=== PATIENT | female | born 1960 | race African-American/Black ===

== ENCOUNTER → 2016-12-13 | Outpatient (CLI) | payer OTHER ==
--- NOTE | 2016-12-13 10:14 | RAD ---
DATE: 12/13/2016 EXAM: DIGITAL SCREEN BILAT W/CAD HISTORY: Screening study. COMPARISON: None. This study was interpreted with the benefit of Computerized Aided Detection (CAD). FINDINGS: Digital MLO and CC mammograms of both breasts were obtained. No previous mammograms are available for comparison. The breast parenchyma is composed of scattered fibroglandular densities which can obscure a lesion on mammography (breast density code B). Benign-appearing calcifications are seen scattered throughout both breasts. A 1.4 cm slightly rounded mass is seen within the upper outer quadrant of the right breast. Further evaluation with ultrasound is recommended. No dominant mass is seen within the left breast. No malignant appearing calcification or area of architectural distortion is noted. IMPRESSION: 1.4 cm mass is seen within the upper-outer quadrant of the right breast. Further evaluation with right breast ultrasound is recommended. BI-RADS CATEGORY: 0 INCOMPLETE: NEEDS ADDITIONAL IMAGING EVALUATION AND/OR PRIOR MAMMOGRAMS FOR COMPARISON. RECOMMENDED FOLLOW-UP: ADD ADDITIONAL IMAGING Mammography is a sensitive method for finding small breast cancers, but it does not detect them all and is not a substitute for careful clinical examination. A negative mammogram does not negate a clinically suspicious finding and should not result in delay in biopsying a clinically suspicious abnormality. "Our facility is accredited by the [employer] Mammography [employer]."
== END | disposition home or self-care (01) ==
LOC: MAMMO 08:08
PROVIDERS: ATTEND Family Medicine
DX: Z12.31 Encounter for screening mammogram for malignant neoplasm of breast (principal); N63 Unspecified lump in breast
CPT/HCPCS: G0202; 77067

== ENCOUNTER → 2016-12-27 | Outpatient (CLI) | payer MEDICAID, OTHER ==
--- NOTE | 2016-12-27 11:42 | RAD ---
Right breast ultrasound Indication: 56-year-old female with abnormal right breast findings on screening mammogram from 12/13/2016. Technique: Targeted ultrasound of the right breast. Comparison: Screening mammogram from 12/13/2016 Findings: There is a 1.0 x 1.0 x 0.9 cm well-circumscribed hypoechoic lesion at 9:00 position, 5 cm from the nipple with posterior acoustic enhancement and no internal vascularity or mural nodularity. Impression: Simple cyst in the right breast. This corresponds to previously seen abnormality on mammogram from 12/13/2016. BI-RADS 2: Benign finding:
== END | disposition home or self-care (01) ==
LOC: US 10:12
PROVIDERS: ATTEND Family Medicine
DX: R92.8 Other abnormal and inconclusive findings on diagnostic imaging of breast (principal); N60.01 Solitary cyst of right breast
CPT/HCPCS: 76641

== ENCOUNTER 2020-05-05 12:31 | Emergency (ER) | payer OTHER ==
[~2020-05-05] VITALS: Ht 170.2 cm; Wt 86.8 kg
[2020-05-05 12:43] VITALS: BP 167/79
--- NOTE | 2020-05-05 13:27 | RAD ---
Examination: XR HAND_LEFT 3 VIEWS, XR LT WRIST 3VIEWS, XR ELBOW_LEFT, XR FOREARM_LEFT 2 VIEWS History: Reason: wrist pain s/p foosh / Comparison/Correlation: None Findings: 3 images of the left wrist, 3 images of the left hand, 2 images of the left forearm, and T2 images of the left elbow were obtained. Comminuted distal radial metaphyseal fracture are present. Intra-articular extension noted. Displacem ent of fracture fragments noted. Ulnar styloid fracture is displaced. Marked soft tissue swelling at the dorsal aspect of the wrist noted. Carpal bones are grossly unremarkable. Degenerative narrowing o f interphalangeal joints is evident. Mid and proximal aspects of the radius and ulna are unremarkable. Evaluation of the elbow may be limi jasmin due to hyperflexion for purposes of this exam. Joint spaces are unremarkable at the elbow. No elb ow joint effusion suspected. Impression: Comminuted distal radial metaphyseal fracture with displacement of fragments and intra-articular exte nsion. Displaced ulnar styloid fracture. Carpal bones are intact. If occult fracture involving carpal bones is a persistent concern, consider further imaging. Electronically signed by: Joey Hall MD (05/05/2020 1:25 PM) [id number]
[2020-05-05] MEDS ORDERED: HYDR-3164 PO (13:39)
--- NOTE | 2020-05-05 13:43 | PHYS DOC ---
Past Medical History Past Medical History: Anxiety, Asthma, GERD Additional Past Medical Histor: neuropathy Past Surgical History: No Surgical History Smoking Status: Never Smoker Alcohol Use: None General Adult EDM: Chief Complaint: MECHANICAL FALL HPI: HPI: 59 yo has medical history of fibromyalgia, presents the ED with complaints of left wrist pain (R hand dominant) after patient accidentally slipped and fell in her bathroom on tile floor while wearing socks. States she fell backwards on a flexed left hand, late last night. Did not come to the ED immediately because she did not have a ride. Does report mildly hitting her head. No loss of consciousness. Not on any anticoagulants. Denies any associated headache, neck stiffness, midline neck pain, chest pain, dizziness, shortness of breath or hemoptysis, leg swelling, back pain or neurologic deficits Review of Systems: Review of Systems: Constitutional: Denies fever or chills. [] Eyes: Denies change in visual acuity. [] HENT: Denies nasal congestion or sore throat. [] Respiratory: Denies cough or shortness of breath. [] Cardiovascular: Denies chest pain or edema. [] GI: Denies abdominal pain, nausea, vomiting, bloody stools or diarrhea. [] : Denies dysuria or hematuria Musculoskeletal: Denies back pain or hot joint Integument: Denies crepitus or cyanosis Neurologic: Denies headache, neck pain, focal weakness or sensory changes. [] Endocrine: Denies polyuria or polydipsia. [] Lymphatic: Denies swollen glands. [] Psychiatric: Denies depression or anxiety. [] Heart Score: Risk Factors: Risk Factors: DM, Current or recent (<one month) smoker, HTN, HLP, family history of CAD, obesity. Risk Scores: Score 0 - 3: 2.5% MACE over next 6 weeks - Discharge Home Score 4 - 6: 20.3% MACE over next 6 weeks - Admit for Clinical Observation Score 7 - 10: 72.7% MACE over next 6 weeks - Early Invasive Strategies Allergies: Allergies: Allergies Coded Allergies Type Severity Reaction Last Updated Verified No Known Drug Allergies 05/05/20 No Physical Exam: PE: Constitutional: Well developed, well nourished, no acute distress, non-toxic appearance, obese HENT: Normocephalic, atraumatic, no midline neck pain Eyes: PERRLA, EOMI, conjunctiva normal, no discharge. Neck: Normal range of motion, supple, Cardiovascular: S1/2 present, regular rhythm Lungs & Thorax: Speaking in full sentences, bilateral equal chest rise, no tachypnea or increased work of breathing Abdomen: soft, no tenderness, Skin: Warm, dry, no erythema, no rash. [] Back: No midline tenderness, no CVA tenderness. [] Extremities: Ecchymosis over dorsum of hand swelling, swelling over left distal wrist, equal radial pulses, no elbow or shoulder ttp, no pain past MCP joints, no snuffbox ttp, Neurologic: Alert and oriented X 3, normal motor function, normal sensory function, no focal deficits noted. [] Psychologic: Affect normal, judgement normal, mood alfa-smiling/makes jokes Current Patient Data: Vital Signs: Vital Signs Date Time Temp Pulse Resp B/P (MAP) Pulse Ox O2 Delivery O2 Flow Rate FiO2 05/05/20 12:43 98.2 82 18 167/79 (108) 97 Room Air 98.2 EKG: EKG: [] Radiology/Procedures: Radiology/Procedures: IMAGING REPORT Signed PATIENT: SANA ROB ACCOUNT: [id number] : 1960 LOCATION: ER AGE: 59 SEX: F EXAM STATUS: REG ER ORD. PHYSICIAN: NOAH PECK DO REASON: wrist pain s/p foosh PROCEDURE: ELBOW LEFT 2V Examination: XR HAND_LEFT 3 VIEWS, XR LT WRIST 3VIEWS, XR ELBOW_LEFT, XR FOREARM_LEFT 2 VIEWS History: Reason: wrist pain s/p foosh / Comparison/Correlation: None Findings: 3 images of the left wrist, 3 images of the left hand, 2 images of the left forearm, and T2 images of the left elbow were obtained. Comminuted distal radial metaphyseal fracture are present. Intra-articular extension noted. Displacement of fracture fragments noted. Ulnar styloid fracture is displaced. Marked soft tissue swelling at the dorsal aspect of the wrist noted. Carpal bones are grossly unremarkable. Degenerative narrowing of interphalangeal joints is evident. Mid and proximal aspects of the radius and ulna are unremarkable. Evaluation of the elbow may be limited due to hyperflexion for purposes of this exam. Joint spaces are unremarkable at the elbow. No elbow joint effusion suspected. Impression: Comminuted distal radial metaphyseal fracture with displacement of fragments and intra-articular extension. Displaced ulnar styloid fracture. Carpal bones are intact. If occult fracture involving carpal bones is a persistent concern, consider further imaging. Electronically signed by: Joey López MD (05/05/2020 1:25 PM) [id number] DICTATED and SIGNED BY: JOEY LÓPEZ MD DATE: 05/05/20 [id number] Impression: Patient informed of findings. Sugar tong left upper extremity splint applied by rn. The splint is checked by myself, with appropriate stabilization of the injury. Distal capillary refill normal and distal neurologic function intact Course & Med Decision Making: Course & Med Decision Making Pertinent Labs and Imaging studies reviewed. (See chart for details) Seen for comminuted closed distal radius fracture and ulnar styloid fracture status post FOOSH injury with no head injury. Patient neurologically intact with no pain out of proportion. Splint instructions given. Will discharge home with strict ED return precautions were given for severe worsening pain, sensory or motor deficits, paralysis or paresthesias or skin color changes.. Encouraged urgent outpatient follow-up with PMD and ortho evaluation in next week. Life- threatening processes were considered but are low suspicion at this time, given history, physical exam and ED workup. Pt was educated on all prescription medi cations and adverse effects. All patient's questions were answered and pt was stable at time of discharge. Life/limb-threatening differential includes but is not limited to, intracranial hemorrhage, diffuse axonal injury, spinal cord syndrome, unstable cervical fracture or SCIWORA, fractures or joint dislocations, neurovascular injuries, organ injury or laceration, pneumothorax, pneumoperitoneum, pericardial tamponade, unstable pelvic fracture, compartment syndrome, flail chest or respiratory distress, burn injury or asphyxiation I spoken with the patient and her caregivers. I explained the patient's condition, diagnoses and treatment plan based on the information available to me at this time. I have answered the patient and her caregiver's questions and addressed any concerns. The patient and her caregivers have a good understanding of patient's diagnosis, condition and treatment plan as can be expected at this point. Vital signs have been stable. Patient's condition is stable and appropriate for discharge from the emergency department. Patient will pursue further outpatient evaluation with primary care physician or other designated or consulting physician as outlined in the discharge instructions. The patient and/or caregivers are agreeable to this plan of care and follow-up instructions have been explained in detail. The patient and/or caregivers have received these instructions in written form and have expressed an understanding of the discharge instructions. The patient and/or caregivers are aware that any significant change of condition or worsening of symptoms should prompt immediate return to this or the closest emergency department [facility] Disclaimer: Tom Disclaimer: This electronic medical record was generated, in whole or in part, using a voice recognition dictation system. Departure Departure Impression: Primary Impression: Distal radial fracture Additional Impressions: Fracture of ulnar styloid Accidental fall Disposition: 01 DC HOME SELF CARE/HOMELESS Condition: STABLE Referrals: NON,STAFF (PCP) FOLLOW UP WITH FAMILY MEDICINE: Family Medicine Address: [address], [facility] [address] [place] [address] Patient Instructions: Radius Fracture with Rehab-SportsMed, Splint Care, [id number], Ulnar Fracture Additional Instructions: FOLLOW UP WITH ORTHOPEDICS: within 1 week for evaluation [facility] Address: [address] [facility], [facility] [address] [place] [address] EMERGENCY DEPARTMENT GENERAL DISCHARGE INSTRUCTIONS Thank you for coming to [facility] Emergency Department (ED) today and trusting us with you care. We trust that you had a positive experience in our Emergency Department. If you wish to speak to the department management, you may call the Director at [phone]. YOUR FOLLOW UP INSTRUCTIONS ARE FOLLOWS: 1. Do you have a private Doctor? If you do not have a private doctor, please ask for a resource list of physicians or clinics that may be able to assist you with follow up care. 2. The Emergency Physicain has interpreted your x-rays. The X-Ray specialist will also review them. If there is a change in the findings, you will be notified in 48 hours when at all possible. 3. A lab test or culture has been done, your results will be reviewed and you will be notified if you need a change in treatment. ADDITIONAL INSTRUCTIONS AND INFORMATION: 1. Your care today has been supervised by a physician who is specially trained in emergency care. Many problems require more than one evaluation for a complete diagnosis and treatment. We recommend that you schedule your follow up appointment as recommended to ensure complete treatment of you illness or injury. If you are unable to obtain follow up care and continue to have a problem, or if your condition worsens, we recommend that you return to the ED. 2. We are not able to safely determine your condition over the phone nor are we able to give sound medical advice over the phone. For these safety reasons, if you call for medical advice we will ask you to come to the ED for further evaluation. 3. If you have any questions regarding these discharge instructions please call the ED at [phone]. SAFETY INFORMATION: In the interest of safety, wellness, and injury prevention; we encourage you to wear your sealbelt, if you smoke; quite smoking, and we encourage family to use a protective helmet for bicycling and other sporting events that present an increased risk for head injury. IF YOUR SYMPTOMS WORSEN OR NEW SYMPTOMS DEVELOP, OR YOU HAVE CONCERNS ABOUT YOUR CONDITION; OR IF YOUR CONDITION WORSENS WHILE YOU ARE WAITING FOR YOUR FOLLOW UP APPOINTMENT; EITHER CONTACT YOUR PRIMARY CARE DOCTOR, THE PHYSICIAN WHOSE NAME AND NUMBER YOU WERE GIVEN, OR RETURN TO THE ED IMMEDIATELY. Scripts Hydrocodone/Apap 5-325 (NORCO 5-325 TABLET) 1 Each Tablet 1 TAB PO PRN Q6HRS PRN for PAIN for 3 Days, #12 TAB 0 Refills Prov: NOAH PECK DO 05/05/20 NOAH PECK DO May 05, 2020 13:43
[2020-05-05] MEDS ORDERED: HYDROcodone/APAP 5/325MG 1 TAB TABLET PO ONE (13:45)
== END 2020-05-05 14:01 | disposition home or self-care (01) ==
LOC: ER 12:31
DX: S52.502A Unspecified fracture of the lower end of left radius, initial encounter for closed fracture (principal); S52.612A Displaced fracture of left ulna styloid process, initial encounter for closed fracture; K21.9 Gastro-esophageal reflux disease without esophagitis; J45.909 Unspecified asthma, uncomplicated; W01.0XXA Fall on same level from slipping, tripping and stumbling without subsequent striking against object, initial encounter; Y93.89 Activity, other specified; Y92.091 Bathroom in other non-institutional residence as the place of occurrence of the external cause; Y99.8 Other external cause status
CPT/HCPCS: 29125; 73070; 73090; 73110; 73130; 99284

== ENCOUNTER 2020-05-12 12:07 | Day surgery (SDC) | payer OTHER ==
[~2020-05-12] VITALS: Ht 170.2 cm; Wt 90.3 kg
[~2020-05-12 12:07] MED LIST: ALBU2.5V8 IH; FLUT1BLS3 IH; GABA600T7 PO; HYDR-3164 PO; HYDROmorphone 2 MG/ML VIAL IV PRN; IV RINGERS,LACTATED 1000ML 1,000 ML IV SCH; MONT10TA49 PO; MORPHINE SULFATE 2 MG/ML VIAL. IV PRN; NAPR-514 PO; OMEP40CA45 PO; ONDANSETRON PF 4 MG/2 ML VIAL. IV PRN; POTA20TA4 PO; PROCHLORPERAZINE 10 MG/2 ML VIAL. IV PRN; fentaNYL PF VIAL 100 MCG/2 ML VIAL IV PRN
[2020-05-12] MEDS ORDERED: FLUT1BLS3 IH (13:13)
[2020-05-12] MEDS ORDERED: BACL10TA PO (13:14)
[2020-05-12] MEDS ORDERED: IPRA0.2S5 IH (13:15)
[2020-05-12] MEDS ORDERED: fentaNYL PF VIAL 100 MCG/2 ML VIAL ONE ×2 (13:44→15:15)
[2020-05-12] MEDS ORDERED: MIDAZOLAM HCL/PF 2 MG/2 ML VIAL. ONE (13:44)
[2020-05-12] MEDS ORDERED: BUPIVACAINE MPF 0.5% 30 ML VIAL. ONE (13:49)
[2020-05-12] MEDS ORDERED: ceFAZolin 2GM PREMIX 2 GM/50 ML BAG IV ONE (14:00)
[2020-05-12] MEDS ORDERED: HYDR-3165 PO (14:56)
--- NOTE | 2020-05-12 14:59 | DISCH ---
DISCHARGE INSTRUCTIONS Condition on Discharge Condition on Discharge: Stable Activity After Discharge Activity Instructions for Disc: Other, see below (Fine motor use with gentle grasp for silverware eating writing typing etc.) Lifting Instructions after Dis: No heavy lifting Diet after Discharge Diet after Discharge: Regular Wound Incision Care Wound/Incision Care: Ice to area for comfort, Do not change dressing Contacting the after DC Call your doctor for: Concerns you may have Follow-Up Follow up with: Dr. Cruz 7 to 10 days VIKASH CRUZ MD May 12, 2020 14:59
[2020-05-12] MEDS ORDERED: PROPOFOL 10 MG/ML (20ML) VIAL. IV ONE (15:02)
[2020-05-12] MEDS ORDERED: LIDOCAINE 2% PF 5 ML VIAL. ONE (15:02)
[2020-05-12] MEDS ORDERED: SEVOFLURANE 61 TO 120 MINUTES. IH ONE (15:02)
[2020-05-12] MEDS ORDERED: DEXAMETHASONE SOD PHOS 4 MG/ML VIAL ONE (15:02)
[2020-05-12] MEDS ORDERED: ONDANSETRON PF 4 MG/2 ML VIAL. ONE (15:02)
[2020-05-12] MEDS: fentaNYL PF VIAL 100 MCG/2 ML VIAL IV PRN ×2 (15:22→15:29)
[2020-05-12] MEDS ORDERED: PROCHLORPERAZINE 10 MG/2 ML VIAL. ONE (15:24)
[2020-05-12] MEDS ORDERED: HYDROcodone/APAP 7.5/325MG 1 TAB TABLET PO ONE (15:45)
--- NOTE | 2020-05-12 15:46 | PDOC4 ---
Operative Note Operative Note Date of surgery: 05/12/2020 Preoperative diagnosis: Displaced left intra-articular distal radius fracture Postoperative diagnosis: Same with 2 part displacement Operative procedure: Operative reduction internal fixation 2 part intra- articular left distal radius fracture Surgeon: Nancy Lard Maker: Naresh coleman Anesthesia: General Estimated blood loss: 10 cc Complications: None Operative indications: Please see my orthopedic clinic note for detailed operative indications Operative text: Patient was identified procedure verified patient placed in the supine position on the operating table. After adequate amounts of general anesthesia were administered the left upper extremity was prepped and draped in standard sterile fashion with an upper arm tourniquet. After timeout was performed patient procedure identified and verified the left upper extremity was exsanguinated by Esmarch bandage tourniquet inflated to 250 mmHg a volar Srinivas approach was carried out to the distal radius and subperiosteal dissection was carried out. A narrow short DVR cross lock Kourtney titanium volar plate was selected and with reduction carried out under fluoroscopic guidance a nonlocking screw was placed in the sliding hole and fine placement of the plate was then accomplished under fluoroscopic guidance. Distal row locking screws were placed under fluoroscopic guidance to check positioning and length and excellent fixation was noted throughout. Anatomic reduction carried out of the intra- articular portion of the fracture and volar tilt was restored. Proximal locking screws were likewise placed in addition to additional shaft fixation with nonlocking screws. Reduction and hardware placement were checked under multiple fluoroscopic views there irrigation carried out normal saline solution subcutaneous closure accomplished with buried Vicryl suture subcuticular 3-0 Monocryl Steri-Strips and Mastisol were then placed followed by a well-padded volar splint. Fingers were noted to be warm pink following deflation of the tourniquet patient was returned to recovery room stable condition having tolerated procedure well. Naresh coleman was present for the procedure and assisted and patient positioning prepping draping retraction closure and dressings VIKASH REAVES MD May 12, 2020 15:46
[2020-05-12 16:55] VITALS: BP 152/64
== END 2020-05-12 17:33 | disposition home or self-care (01) ==
LOC: SURG 12:07
PROVIDERS: ATTEND Orthopaedic Surgery
DX: S52.572A Other intraarticular fracture of lower end of left radius, initial encounter for closed fracture (principal); S52.612A Displaced fracture of left ulna styloid process, initial encounter for closed fracture; K21.9 Gastro-esophageal reflux disease without esophagitis; J45.909 Unspecified asthma, uncomplicated; F41.9 Anxiety disorder, unspecified; Z79.899 Other long term (current) drug therapy; Z98.890 Other specified postprocedural states; Z20.828 Contact with and (suspected) exposure to other viral communicable diseases; X58.XXXA Exposure to other specified factors, initial encounter; Y93.89 Activity, other specified; Y92.89 Other specified places as the place of occurrence of the external cause; Y99.8 Other external cause status
CPT/HCPCS: 25608; 87426; C1713; C9803; J0690; J0780; J1100; J2250; J2405; J2704; J3010; J3490; U0003; 76000

== ENCOUNTER → 2020-09-04 | Outpatient (CLI) | payer OTHER ==
[~2020-09-04] MED LIST changes: +BACL10TA PO; +HYDR-3165 PO; -HYDROmorphone 2 MG/ML VIAL IV PRN; +IPRA0.2S5 IH; -IV RINGERS,LACTATED 1000ML 1,000 ML IV SCH; -MORPHINE SULFATE 2 MG/ML VIAL. IV PRN; -OMEP40CA45 PO; +OMEP40CA7 PO; -ONDANSETRON PF 4 MG/2 ML VIAL. IV PRN; +OXYC1TAB19 PO; -PROCHLORPERAZINE 10 MG/2 ML VIAL. IV PRN; -fentaNYL PF VIAL 100 MCG/2 ML VIAL IV PRN
--- NOTE | 2020-09-04 14:10 | KCIC ---
Examination: MRI of the left shoulder without contrast HISTORY: History of left shoulder pain, decreased range of motion COMPARISON: None available TECHNIQUE: Multiplanar, multisequence MR imaging of the left shoulder. FINDINGS: The long head of the biceps tendon within the bicipital groove. The attachment of the long head the b iceps tendon to the superior labral anchor grossly appears intact. Small amount of fluid identified i n the biceps tendon sheath. The attachment of the subscapularis tendon grossly appears intact. There is full-thickness tear of the supraspinatus tendon with tendon retraction up to the level of the mid humerus head with extension of fluid in the subacromial /subdeltoid bursa. Moderate increased signal identified in the supraspinatus, infraspinatus tendon likely tendinosis. There is mild obscuration of fat in the rotator interval. The acromion is type II. The visualized labrum grossly appears unremark able. The muscle bulk grossly appears unremarkable. Moderate degenerative changes glenohumeral joint, acromioclavicular joint. IMPRESSION: 1. Full-thickness tear of the supraspinatus tendon with mild tendon retraction. 2. Moderate tendinosis of the cuff. 3.Moderate degenerative changes acromioclavicular joint, glenohumeral joint. Electronically signed by: Jovany Alex MD (09/04/2020 2:07 PM) [id number]
== END ==
LOC: KCIC MRI 12:20
PROVIDERS: ATTEND Physician Assistant
DX: M19.012 Primary osteoarthritis, left shoulder (principal); M75.122 Complete rotator cuff tear or rupture of left shoulder, not specified as traumatic
CPT/HCPCS: 73221

== ENCOUNTER → 2020-09-29 | Outpatient (CLI) | payer OTHER ==
[~2020-09-29] MED LIST changes: +OMEP40CA45 PO; -OMEP40CA7 PO
== END ==
LOC: LAB 08:42
PROVIDERS: ATTEND Orthopaedic Surgery
DX: Z01.812 Encounter for preprocedural laboratory examination (principal); Z20.822 Contact with and (suspected) exposure to COVID-19; M75.122 Complete rotator cuff tear or rupture of left shoulder, not specified as traumatic
CPT/HCPCS: U0003; U0005

== ENCOUNTER 2020-10-02 07:57 | Day surgery (SDC) | payer OTHER ==
[~2020-10-02 07:57] MED LIST changes: +EPINEPHrine VIAL 30 MG/30 ML VIAL ONE; +HYDROmorphone 2 MG/ML VIAL IVP PRN; +IV RINGERS,LACTATED 1000ML 1,000 ML IV SCH; +MORPHINE SULFATE 2 MG/ML VIAL. IVP PRN; -OMEP40CA45 PO; +OMEP40CA7 PO; -OXYC1TAB19 PO; +PROCHLORPERAZINE 10 MG/2 ML VIAL. IVP PRN; +fentaNYL PF VIAL 100 MCG/2 ML VIAL IVP PRN
[2020-10-02] MEDS ORDERED: fentaNYL PF VIAL 100 MCG/2 ML VIAL ONE (08:36)
[2020-10-02] MEDS ORDERED: MIDAZOLAM HCL/PF 2 MG/2 ML VIAL. ONE (08:37)
[2020-10-02] MEDS ORDERED: ROCURONIUM 50 MG/5 ML VIAL. ONE (08:39)
[2020-10-02] MEDS ORDERED: LIDOCAINE 2% PF 5 ML VIAL. ONE (08:39)
[2020-10-02] MEDS ORDERED: PROPOFOL 10 MG/ML (20ML) VIAL. IV ONE (08:39)
[2020-10-02] MEDS ORDERED: ROPIVacaine 0.5% PF 20 ML VIAL. ONE ×2 (08:42)
[2020-10-02] MEDS ORDERED: GLYCOPYRROLATE 1 MG/5 ML VIAL. ONE (10:25)
[2020-10-02] MEDS ORDERED: NEOSTIGMINE METHYLSULFATE 5 MG/5 ML SYRINGE. ONE (10:25)
[2020-10-02] MEDS ORDERED: ONDANSETRON PF 4 MG/2 ML VIAL. ONE (10:25)
[2020-10-02] MEDS ORDERED: DEXAMETHASONE SOD PHOS 4 MG/ML VIAL ONE (10:25)
[2020-10-02] MEDS ORDERED: OXYC1TAB19 PO (11:49)
[2020-10-02 11:58] VITALS: BP 133/72
[2020-10-02] MEDS ORDERED: oxyCODONE/APAP 7.5/325 1 TAB TABLET PO ONE ×2 (12:15)
[2020-10-02] MEDS ORDERED: PROCHLORPERAZINE 10 MG/2 ML VIAL. ONE (12:31)
--- NOTE | 2020-10-02 13:01 | DISCH ---
DISCHARGE INSTRUCTIONS Condition on Discharge Condition on Discharge: Stable Activity After Discharge Activity Instructions for Disc: Other, see below (Passive range of motion of operative shoulder only, do not lift the arm with elbow above the side, fine motor use permitted with the elbow at the side only) Lifting Instructions after Dis: No heavy lifting Weight Bearing Status after Di: Non weight bearing Diet after Discharge Diet after Discharge: Regular Wound Incision Care Wound/Incision Care: Ice to area for comfort, Change dressing (Remove dressing in 2 days may then shower no soaking until sutures removed) Community/Resources/Services Services at Discharge: PT EVALUATE & TREAT (Passive range of motion only, no active lifting of the elbow away from the side, may do pendulum exercises and hang the arm down to the side while walking, must wear immobilizer at night) Contacting the [facility] after DC Call your doctor for: Concerns you may have Follow-Up Follow up with: Dr. Cruz or Curtis 10 days postop VIKASH CRUZ MD October 02, 2020 13:00
--- NOTE | 2020-10-02 15:52 | PDOC4 ---
Operative Note Operative Note Date of surgery: 10/02/2020 Preoperative diagnosis: Left shoulder rotator cuff tear and suspected biceps labral compromise Postoperative diagnosis: Same with retracted full-thickness supraspinatus tear and biceps tendon fraying Operative procedure: Left shoulder arthroscopy arthroscopic rotator cuff repair and biceps tenodesis with labral debridement Surgeon: Nancy Cytotechnologist Supervisor:Den coleman Anesthesia: General plus scalene block Estimated blood loss: 10 cc Complications: None Operative indications: Please see my preoperative clinic note for detailed op erative indications and note that I covered the possibility of nonhealing nerve or blood vessel damage continued pain medical or other anesthetic complications among others and that specific postoperative restrictions would depend on the specific pathology found and fixed. She agrees to proceed with surgical evaluation and treatment Operative text: Patient was identified procedure verified patient placed in the supine position on the operating table. After adequate amounts of general anesthesia and a pre-existing scalene block were obtained she was placed in the decubitus position left side up all bony prominences were well-padded and the left shoulder was examined under anesthesia found to have full range of motion no instability. The left shoulder was then prepped and draped in standard sterile fashion and placed in the arthroscopic arm perez with a total of 10 pounds of traction. After timeout was performed patient procedure identified and verified a standard posterior portal was established an anterior portal established using spinal needle localization and the shoulder joint was systematically examined. Glenohumeral joint was well-maintained. She had biceps fraying of at least 35 to 40%. She also had a retracted full-thickness tear of the supraspinatus and anterior aspect of the infraspinatus tendon. Capsuloligamentous structures were in good condition as was the subscapularis. Biceps was tagged and tenotomized and the subacromial space was entered a lateral portal established and bursa cleared for adequate visualization. Rotator cuff tear was noted to be and a U-shaped and a [id number] max braid suture was placed for margin convergence and was tied with a sliding locking knot backed up by alternating post half hitches. The rotator cuff footprint was debrided back to stable bleeding bony tissue without decortication. A total of 2 juggernaut double loaded anchors were placed medially on the footprint and simple sutures were placed following the margin convergence and adequate mobilization. An additional max braid suture was placed in the biceps tendon to perform a biceps tenodesis coincident with the rotator cuff repair arthroscopically. Both were anchored with a 5.5 Anesco peek lateral row anchor which had excellent fixation. A watertight rotator cuff repair was demonstrated and biceps was well tensioned and contour maintained. Joint was drained of arthroscopic fluid portals closed with nylon suture sterile dressings were applied, and immobilizer was placed and patient returned to recovery room in stable condition having tolerated procedure well VIKASH REAVES MD October 02, 2020 15:52
== END 2020-10-02 13:32 | disposition home or self-care (01) ==
LOC: SURG 07:57
PROVIDERS: ATTEND Orthopaedic Surgery
DX: M75.122 Complete rotator cuff tear or rupture of left shoulder, not specified as traumatic (principal); J45.909 Unspecified asthma, uncomplicated; K21.9 Gastro-esophageal reflux disease without esophagitis; F41.9 Anxiety disorder, unspecified; Z79.899 Other long term (current) drug therapy; Z98.890 Other specified postprocedural states
CPT/HCPCS: 29827; 29828; 64415; A4565; A4930; C1713; J0171; J0780; J1100; J2250; J2405; J2704; J2710; J2795; J3010; J3490